=== PATIENT | female | born 1975 ===

== ENCOUNTER 2020-12-03 05:19 | Day surgery (SDC) | payer OTHER ==
[~2020-12-03 05:19] MED LIST: ACID REDUCER20 M1 PO; CLONAZEPAM1 MG PO; COZAAR100 MG PO; HYDROCHLOROTH12.5 MG PO; LIRICA PO; SIMVAST PO; TIROSINT125 MCG PO; TOPROL XL50 M1 PO; VENLAFAXINE HC150 M1 PO; VITAMIN C PO; VITAMIN E400 UNI2 PO; [UNRECOGNIZED DRUG - OTHER] PO
[2020-12-03] MEDS ORDERED: PERCOCET 5-3251 EACH PO (10:16)
== END 2020-12-03 13:00 | disposition home or self-care (01) ==
LOC: CIR.AMB 05:19
PROVIDERS: ATTEND Surgery
DX: E21.0 Primary hyperparathyroidism (principal); Z20.822 Contact with and (suspected) exposure to COVID-19